=== PATIENT | male | born 1975 | race Caucasian/White ===

== ENCOUNTER 2018-12-24 08:05 | Emergency (ER) | payer BC ==
[~2018-12-24] VITALS: Ht 157.5 cm; Wt 91.8 kg
[2018-12-24 08:12] VITALS: Ht 157.5 cm; Wt 91.8 kg
[2018-12-24 09:43] VITALS: BP 121/81
== END 2018-12-24 09:43 | disposition home or self-care (01) ==
LOC: ED 08:05
DX: H01.003 Unspecified blepharitis right eye, unspecified eyelid (principal)